=== PATIENT | female | born 1990 | race Caucasian/White ===

== ENCOUNTER → 2021-09-23 | Day surgery (SDC) | payer OTHER ==
[~2021-09-23] VITALS: Ht 160 cm; Wt 59.0 kg
[~2021-09-23] MED LIST: DAILY VALUE1 EACH PO; FIBER TABS625 MG PO; FLONASE ALLER15.8 ML; ZYRTEC10 MG PO
[2021-09-23 07:17] LABS: HCG (URINE) SCREEN NEGATIVE (NEGATIVE)
[2021-09-23 07:28] LABS: BASOPHIL 0.3 % (0-2); EOSINOPHIL 1.3 % (0-5); HCT 41.5 % (37.0-47.0); HGB 14.1 g/dl (12.5-16.0); LYMPHOCYTE 19.2 % (15-48); MCH 30.3 pg (25.0-31.0); MCV 89.2 fL (78.0-100.0); MONOCYTE 6.4 % (0-12); MPV 9.5 fL (6.0-9.5); NEUTROPHIL 72.6 % (41-80); NRBC 0; PLT 277 K/uL (150-400); RBC 4.65 M/uL (4.20-5.40); RDW 13.2 % (11.5-14.0)
== END | disposition home or self-care (01) ==
LOC: FAS 07:02
PROVIDERS: Oral & Maxillofacial Surgery
DX: K02.9 Dental caries, unspecified (principal); F41.8 Other specified anxiety disorders; F17.200 Nicotine dependence, unspecified, uncomplicated; Z79.1 Long term (current) use of non-steroidal anti-inflammatories (NSAID); Z88.0 Allergy status to penicillin; Z88.8 Allergy status to other drugs, medicaments and biological substances
CPT/HCPCS: D7140; D7210; 36415; 84703; 85025; J1100; J2250; J2405; J2550; J2704; J2710; J3010; J7120